=== PATIENT | female | born 1970 | race Caucasian/White ===

== ENCOUNTER 2016-05-14 11:48 | Emergency (ER) | payer SELFPAY ==
[~2016-05-14] VITALS: Ht 167.6 cm; Wt 68.0 kg
[2016-05-14] MEDS ORDERED: IV NS 0.9% 1,000 ML ONE (12:23)
[2016-05-14] MEDS ORDERED: IV SET PRIMARY PUMP SET 1 EA INFUS.SET MC ONE (12:24)
[2016-05-14 12:30] LABS: BASOPHILS # (AUTO) 0.3 /CMM (0.0-0.2); BASOPHILS % (AUTO) 2.5 % (0.0-2.0); DIFF TOTAL % 100 %; EOSINOPHILS # (AUTO) 0.1 /CMM (0.0-0.7); EOSINOPHILS % (AUTO) 0.7 % (0.0-6.0); HEMATOCRIT 40 % (33-45); HEMOGLOBIN 12.6 g/dL (11.5-14.8); LYMPHOCYTES # (AUTO) 1.9 /CMM (0.8-4.8); LYMPHOCYTES % (AUTO) 16.2 % (20.0-44.0); MEAN CORPUSCULAR HEMOGLOBIN 21 PG (26.0-33.0); MEAN CORPUSCULAR HGB CONC 32 g/dl (31.0-36.0); MEAN CORPUSCULAR VOLUME 67 fL (82-100); MONOCYTES # (AUTO) 0.4 /CMM (0.1-1.30); MONOCYTES % (AUTO) 3.1 % (2.0-12.0); NEUTROPHILS # (AUTO) 9.3 /CMM (1.8-8.9); NEUTROPHILS % (AUTO) 77.5 % (43.0-81.0); PLATELET COUNT (AUTO) 364 /CMM (150-450); RED BLOOD CELL COUNT(AUTO) 5.98 MIL/uL (4.0-5.2)
[2016-05-14] MEDS ORDERED: IV NS 0.9% 1,000 ML BAG IV ONE (12:30)
[2016-05-14 12:39] LABS: ANION GAP 11 (5-14); CALCIUM, SERUM 8.9 mg/dL (8.5-10.1); CARBON DIOXIDE 28 mmol/L (21-32); CHLORIDE 104 mmol/L (98-107); CREATININE 0.8 mg/dL (0.6-1.3); GFR 78 mL/min (>60); GLUCOSE 87 mg/dL (74-106); POTASSIUM 4.6 mmol/L (3.5-5.1); SODIUM SERUM 138 mmol/L (136-145); UREA NITROGEN, BLOOD 10 mg/dL (7-18)
[2016-05-14 12:43] LABS: INR 1.05 (0.87-1.13)
[2016-05-14 12:44] LABS: ALANINE AMINOTRANSFERASE 20 U/L (12-78); ALBUMIN 3.8 g/dL (3.4-5.0); ASPARTATE AMINOTRANSFERASE 18 U/L (15-37); BILIRUBIN,DIRECT 0.1 mg/dL (0.0-0.2); BILIRUBIN,TOTAL 0.3 mg/dL (0.2-1.0); INDIRECT BILIRUBIN 0.2 mg/dL (0.0-1.1); TOTAL PROTEIN, SERUM 7.6 g/dL (6.4-8.2)
[2016-05-14 12:46] LABS: TROPONIN I < 0.017 ng/mL (0.00-0.056)
[2016-05-14 12:46] LABS: KETONES,URINE Negative (NEGATIVE); LEUKOCYTE ESTERASE ,URINE Negative (NEGATIVE); PH,URINE 5.5 (5.0-8.0)
[2016-05-14 12:47] LABS: ADD UA MICROSCOPIC YES
[2016-05-14 12:53] LABS: LACTIC ACID 0.9 mmol/L (0.4-2.0)
[2016-05-14 12:58] LABS: ADD URINE CULTURE NO
[2016-05-14] MEDS ORDERED: GUAIFENESIN/CODEINE 10 ML UDC PO PRN (14:00)
[2016-05-14 14:31] VITALS: BP 134/77
[2016-05-14 14:46] LABS: LYMPHOCYTES % (MANUAL) 15 % (16-48)
[2016-05-14 14:47] LABS: ANISOCYTOSIS 1+
[2016-05-14 14:49] LABS: PLATELET ESTIMATE ADEQU
== END 2016-05-14 14:32 | disposition home or self-care (01) ==
LOC: ER 11:50
DX: J20.9 Acute bronchitis, unspecified (principal); R79.1 Abnormal coagulation profile
CPT/HCPCS: 36415; 71010; 80048; 80076; 81001; 83605; 84484; 84703; 85025; 85730; 87040 ×2; 87804; 93005; 96360; 99285; A4606; J7030; Z7610; 81000-TC; 87400